=== PATIENT | male | born 1980 | race Caucasian/White ===

== ENCOUNTER 2017-04-02 19:45 | Emergency (ER) | payer OTHER ==
[~2017-04-02] VITALS: Ht 182.9 cm; Wt 133.8 kg
[~2017-04-02 19:45] MED LIST: BACLOFEN 10MG T10 M1; CARISOPRODOL 3350 MG PO; NAPROSYN500 MG PO; NORCO 5-325 TA1 EACH PO
[2017-04-02] MEDS ORDERED: COZAAR 25 MG TA25 M2 (19:50)
[2017-04-02] MEDS ORDERED: IBUPROFEN 800800 MG PO (20:48)
[2017-04-02] MEDS ORDERED: NORCO 5-325 TA1 EACH PO (20:48)
[2017-04-02] MEDS ORDERED: [UNRECOGNIZED DRUG - OTHER] (21:30)
[2017-04-02 21:35] VITALS: BP 138/78
== END 2017-04-02 21:36 | disposition home or self-care (01) ==
LOC: M.ERS 19:45
DX: S93.401A Sprain of unspecified ligament of right ankle, initial encounter (principal); W23.0XXA Caught, crushed, jammed, or pinched between moving objects, initial encounter; Y93.01 Activity, walking, marching and hiking; Y92.89 Other specified places as the place of occurrence of the external cause; Y99.0 Civilian activity done for income or pay